=== PATIENT | female | born 1925 | race Caucasian/White ===

== ENCOUNTER 2016-12-14 22:56 | Inpatient (IN) | payer MEDICARE ==
--- NOTE | ~2016-12-14 | CT24 ---
[facility] A Service of [facility] & [facility] RADIOLOGY TEXT RESULTS PATIENT: NICKY STEWART LOCATION: [facility] 328-01 : [birth year] UNIT #: [id number] AGE: [address]: Reyna Ellison MD SEX: F ORDER DR: [id number] [place], [place] [address] [id number] I MR#: [id number] Acc #: [id number] NAME: NICKY STEWART : 1925 SEX: F STUDY DATE/TIME: 12/14/2016 23:24 UNIT: [address] ROOM: [facility] STUDY DESCRIPTION: CT Angio Neck Stroke Attending Physician: Reyna Ellison M.D. Ordering Physician: Alanis Vinson M.D. Primary Care Physician: Jonathan Aguilera Jr., M.D. MEDICAL IMAGING REPORT This report is preliminary unless electronic signature is present EXAM CT angiogram of the neck HISTORY FINDINGS Please see CT angiogram of the head for results. Dictated by... Raghav Mason M.D. THIS IS AN ELECTRONICALLY VERIFIED REPORT Raghav Mason M.D. at 12/15/2016 4:28 PM Noah TD: 12/15/2016 08:07 JOB #: [id number] MEDICAL IMAGING REPORT Page 1 of 1 COPY
--- NOTE | ~2016-12-14 | HP ---
Unit #: [id number] #: [id number] Patient: NICKY STEWART [id number] [address] [place], [place] [address] [id number] MR#: [id number] NAME: NICKY STEWART ROOM: 328 Age: 89 Sex: F Admission Date: 12/15/2016 : 1925 Attending Physician: Celena Singh M.D. Primary Care Physician: Jonathan Aguilera Jr., M.D. HISTORY AND PHYSICAL CHIEF COMPLAINT TIA. HISTORY This very pleasant 89-year-old female with atrial fibrillation, previous CVA, hypertension, and diastolic dysfunction, is admitted for a TIA. The patient was in her usual state of health until 10:00 p.m. when she experienced right hand and arm numbness and weakness. When EMS arrived the patient did have a pronator drift. She was brought to this emergency department at 11:00 p.m. and was seen by Dr. Almaguer via robot. Her symptoms actually have resolved. INR is subtherapeutic due to recent holding of Coumadin for an EGD. Head CT shows no acute disease, only previous CVAs. Therefore, the patient was given 1 mg/kg subcu of Lovenox. Her BUN is 39 with a creatinine of 1.5 and I am asking for IV fluids to be given. She currently is taking Diflucan for Nia esophagitis and notes decreased appetite. Does take Diovan and Lasix. PAST MEDICAL HISTORY 1. Recent admission to [facility] [place] 12/06/2016 through 12/12/2016 for possible aspiration pneumonia. The patient underwent an EGD showing Nia esophagitis, required dilation of her esophagus. 2. Chronic atrial fibrillation, anticoagulated. Previous echo 02/2016 showed an ejection fraction of 63%, tricuspid valve regurgitation, elevated right ventricular systolic pressures, and thickened aortic valve. 3. Hypertension. 4. Allergic rhinitis. 5. 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 6. Appendectomy. 7. Cataract extraction. 8. JIE and BSO. 9. Tonsillectomy. 10. Partial bowel resection for bowel obstruction. 11. Back surgery. ALLERGIES Morphine. DISCHARGE MEDICATIONS Three days ago included Lasix 40 mg b.i.d.; p.r.n. Tylenol; aspirin 81 mg daily; Imdur 60 mg daily; Ativan 0.5 mg t.i.d. p.r.n.; Coumadin 3 mg daily; Diflucan 100 mg daily; Ellen 180 mg daily; Diovan 320 mg daily; Coreg 6.25 mg daily; MiraLAX as needed; potassium 20 mEq daily; Prevacid Unit #: [id number] #: [id number] Patient: NICKY STEWART 50 mg daily; patient normally takes a statin medicine but this is being held, as she currently is receiving Diflucan. FAMILY HISTORY CVA. SOCIAL HISTORY The patient lives with her . Stopped smoking in 1984 and does not drink alcohol. REVIEW OF SYSTEMS Notable for right hand and arm numbness, weakness, dysphagia, Nia esophagitis, atrial fibrillation, hypertension, diastolic dysfunction, left bundle branch block, hypertension, allergic rhinitis, previous CVA, TIA, and above mentioned surgeries. Other systems were reviewed and are otherwise negative. PHYSICAL EXAMINATION GENERAL: Very pleasant, 89-year-old female, currently in no acute distress. VITAL SIGNS: Pulse 96, respirations 14, initial blood pressure 185/80. Current blood pressure is 163/68. O2 saturation 98% on room air. HEENT: Eyes - PERRLA. Extraocular muscles are intact. Status post bilateral cataract extraction. Pharynx is benign. NECK: Supple without adenopathy or thyromegaly. CHEST: Clear. CARDIAC: Normal S1 and S2, very soft systolic murmur. ABDOMEN: Bowel sounds are present. No hepatosplenomegaly, tenderness, or masses. EXTREMITIES: Without clubbing, cyanosis or edema. Pedal pulses are present. NEUROLOGIC: Patient is awake, alert, and oriented. Cranial nerves are intact. She has +5/5 strength throughout. Normal finger to nose. Negative pronator drift. DIAGNOSTIC STUDIES ADMISSION LABS: Hematocrit is 31.5, normal white count, MCV and platelet count. INR is 1.8, PTT is 38.9. Cardiac markers negative. SMA 12 - BUN 39, creatinine 1.5, up from a BUN of 16, creatinine 0.9 12/06/2016. IMAGING STUDIES: Head CT - old right frontal lobe infarcts, small vessel ischemic disease, bilateral small lacunes. 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 CARDIOLOGY STUDIES: EKG - atrial fibrillation rate 84, left bundle branch block, which is old. ASSESSMENT 1. TIA in this patient with atrial fibrillation and with subtherapeutic INR after holding Coumadin for EGD. 2. Acute kidney injury. 3. Recent admission to [facility] [place] for aspiration pneumonia. Patient underwent an EGD revealing Nia esophagitis and required dilation. 4. Essential hypertension. 5. Atrial fibrillation with history of diastolic dysfunction and normal Unit #: [id number] #: [id number] Patient: NICKY STEWART ejection fraction. 6. Prior CVA in 1996 and history of TIA. PLANS 1. One dose of Lovenox was given, continue Coumadin and check an INR in the morning. 2. Neuro checks q.4 hours. 3. IV fluids, hold Lasix and will change Diovan to hydralazine for now pending repeat labs in the morning. 4. Recheck labs in the morning. 5. Neurology has seen via robot and will be seeing in the morning. At this time the patient prefers not to have an MRI scan performed unless needed. 6. Patient is followed by Dr. Courtney's group, if renal function does not improve. Dictated by Celena Singh M.D. HORACE/ana TD: 12/15/2016 05:44 JOB #: [id number] HISTORY AND PHYSICAL Page 1 of 1 X Celena Singh MD HISTORY AND PHYSICAL
--- NOTE | ~2016-12-14 | CO ---
Unit #: [id number] #: [id number] Patient: NICKY STEWART [id number] [facility] [address] [place], [place] [address] [id number] I MR#: [id number] NAME: NICKY STEWART ROOM: 328 Age: 89 Sex: F Admission Date: 12/15/2016 : 1925 Attending Physician: Reyna Ellison M.D. Primary Care Physician: Jonathan Aguilera Jr., M.D. Requesting Physician: Celena Singh M.D. Consultation Date: 12/15/2016 CONSULTATION REPORT REASON FOR CONSULTATION Code Stroke was called. PATIENT IDENTIFICATION This is an 89-year-old, right handed, white female who was evaluated in room 328 at [facility]. SOURCE OF INFORMATION The patient, her daughter and evaluation done by admitting team and also I saw the patient via [employer] robot. PROBLEM LIST 1. History of Nia esophagitis. Dilatation of esophagus was recently done on 12/12. 2. Chronic atrial fibrillation with (1) anticoagulation but this was held because of recent procedure. 3. Hypertension. 4. Allergic rhinitis. 5. Prior stroke and history of transient ischemic attack. 6. Appendectomy. 7. Cataract extraction. 8. JIE. 9. BSO. 10. Tonsillectomy. 11. Partial bowel resection for bowel obstruction. 12. Back surgery. HISTORY OF PRESENT ILLNESS This is a very pleasant 89-year-old female with medical issues as discussed above who was in her usual state of health until 10 p.m. She experienced right hand numbness and weakness. EMS was called. They saw some pronator drift. She was brought to the emergency room around 10:56 p.m. She was evaluated and I did do evaluation via the robot. She was improving and also she told me that recently her Coumadin was held and it was 1.7 that morning and went repeated it was 1.8. Since she was improving and also that she was on anticoagulation, she was not a tPA candidate. Her CT showed old right frontal infarct. Her tPA was okay. Her other labs are in progress. She is doing very well and wants to go home. No falls or injury. No seizures. No migraine. PAST MEDICAL HISTORY As discussed above. Unit #: [id number] #: [id number] Patient: NICKY STEWART PAST SURGICAL HISTORY As discussed above. ALLERGIES Morphine. MEDICATIONS Medications as per recent records are: 1. Lasix 40 mg b.i.d. 2. Tylenol. 3. Aspirin 81 mg. 4. Imdur 60 mg. 5. Ativan 0.5 mg. 6. Coumadin 3 mg daily. 7. Diflucan 100 mg daily. 8. Ellen 180 mg daily. 9. Diovan 320 mg daily. 10. Coreg 6.25 mg. 11. MiraLAX as needed. 12. Potassium 20 mEq. 13. Prevacid 60 mg. 14. She was taking statin but it was held because she was taking Diflucan and she has renal issues. FAMILY HISTORY There are strokes in the family. SOCIAL HISTORY The patient is and lives with her . She stopped smoking in 1984, does not drink alcohol. REVIEW OF SYSTEMS Right handed numbness which is resolved. No sleep issues, fever, chills, rigors, sweats. HEENT: No headaches, no double vision, no earache, runny nose, sore throat. CARDIOVASCULAR: No chest pain, clubbing, cyanosis, orthopnea, palpitations. PULMONARY: No shortness of air, cough or expectoration. GASTROINTESTINAL: No nausea, vomiting, diarrhea or constipation. GENITOURINARY: No genitourinary symptoms. EXTREMITIES: No extremity problems otherwise. BACK: No back problems. PSYCHIATRIC: No psychiatric issues. NEUROLOGICAL: Neurological issues as discussed. She is on anticoagulation. GI issues are improved. PHYSICAL EXAMINATION VITAL SIGNS: Temperature 97.8, pulse 117, respirations 120, blood pressure is 176/70. O2 sats are 93% to 100%, weight of 139 pounds, BMI was 27. NEUROLOGICAL EXAMINATION: The patient is awake, she is alert, she is oriented x3. She can name, she can follow commands. No right/left confusion, no finger agnosia. CRANIAL NERVE EXAMINATION: Demonstrates full vail of vision. Eye movements are conjugate. I did not see any ptosis, I did not see any Unit #: [id number] #: [id number] Patient: NICKY STEWART nystagmus. Extraocular movements are intact. Sensation on the face and scalp is normal. Strength of muscles of facial expression is normal. Hearing seemed to be intact bilaterally. Tongue was midline. Uvula was midline. Palate elevation was normal. Head turning and shoulder shrugs were unremarkable. MOTOR EXAMINATION: Demonstrated normal bulk, tone. Strength was 5-/5 all over. SENSORY EXAMINATION: Intact for soft touch and pain sensation. No extinction was seen. ROMBERG: Not evaluated. GAIT EXAMINATION: Deferred. REFLEXES: I could not get any reflexes. Toes are equivocal. DIAGNOSTIC STUDIES LABORATORY: Labs reviewed including CT and CTA. BUN today is 27, creatinine is 1.0. Estimated GFR is 49.9. Her INR is now 2.0. She got some Lovenox. Her white count is 8.0. H and H of 10.4 and 32.0. Platelet count is 310. IMPRESSION Possible TIA and it could be secondary to her INR being low which is now back to the baseline. She had a procedure done. She is doing fine so I will have PT/OT evaluate her. If they clear her, she can be discharged. I am going to check hemoglobin A1c and lipid profile but she has known diabetes and also she was on lipid lowering medication which was held because of her kidney issue and Diflucan so that needs to be resumed. She wants to go home so she can be cleared. A GEETHA and MRI will not change anything because she needs some anticoagulation and even stroke education and modification of stroke risk factors were discussed. It was very good that they came on time and she improved so she was not an interventional or alteplase candidate. Call me for any other questions, issues or concerns. Discussed with the family last night and today. Dictated by... Anselmo Ortiz/joseph TD: 12/15/2016 12:40 JOB #: [id number] Unit #: [id number] #: [id number] Patient: NICKY STEWART CONSULTATION REPORT Page 1 of 1 X Villa Almaguer MD CONSULTATION REPORT
--- NOTE | ~2016-12-14 | HP ---
Unit #: [id number] #: [id number] Patient: NICKY STEWART [id number] [address] [address] [id number] I MR#: [id number] NAME: NICKY STEWART ROOM: 328 Age: 89 Sex: F Admission Date: 12/15/2016 : 1925 Attending Physician: Celena Singh M.D. Primary Care Physician: Jonathan Aguilera Jr., M.D. HISTORY AND PHYSICAL REVISED/ADDENDED REPORT CHIEF COMPLAINT TIA. HISTORY This very pleasant 89-year-old female with atrial fibrillation, previous CVA, hypertension, and diastolic dysfunction, is admitted for a TIA. The patient was in her usual state of health until 10:00 p.m. when she experienced right hand and arm numbness and weakness. When EMS arrived the patient did have a pronator drift. She was brought to this emergency department at 11:00 p.m. and was seen by Dr. Almaguer via robot. Her symptoms actually have resolved. INR is subtherapeutic due to recent holding of Coumadin for an EGD. Head CT shows no acute disease, only previous CVAs. Therefore, the patient was given 1 mg/kg subcu of Lovenox. Her BUN is 39 with a creatinine of 1.5 and I am asking for IV fluids to be given. She currently is taking Diflucan for Nia esophagitis and notes decreased appetite. Does take Diovan and Lasix. PAST MEDICAL HISTORY 1. Recent admission to [facility] 12/06/2016 through 12/12/2016 for possible aspiration pneumonia. The patient underwent an EGD showing Nia esophagitis, required dilation of her esophagus. 2. Chronic atrial fibrillation, anticoagulated. Previous echo 02/2016 showed an ejection fraction of 63%, tricuspid valve regurgitation, elevated right ventricular systolic pressures, and thickened aortic valve. 3. Hypertension. 4. Allergic rhinitis. 5. 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 6. Appendectomy. 7. Cataract extraction. 8. JIE and BSO. 9. Tonsillectomy. 10. Partial bowel resection for bowel obstruction. 11. Back surgery. ALLERGIES Morphine. DISCHARGE MEDICATIONS Three days ago included Lasix 40 mg b.i.d.; p.r.n. Tylenol; aspirin 81 mg Unit #: [id number] #: [id number] Patient: NICKY STEWART daily; Imdur 60 mg daily; Ativan 0.5 mg t.i.d. p.r.n.; Coumadin 3 mg daily; Diflucan 100 mg daily; Ellen 180 mg daily; Diovan 320 mg daily; Coreg 6.25 mg daily; MiraLAX as needed; potassium 20 mEq daily; Prevacid 50 mg daily; patient normally takes a statin medicine but this is being held, as she currently is receiving Diflucan. FAMILY HISTORY CVA. SOCIAL HISTORY The patient lives with her . Stopped smoking in 1984 and does not drink alcohol. REVIEW OF SYSTEMS Notable for right hand and arm numbness, weakness, dysphagia, Nia esophagitis, atrial fibrillation, hypertension, diastolic dysfunction, left bundle branch block, hypertension, allergic rhinitis, previous CVA, TIA, and above mentioned surgeries. Other systems were reviewed and are otherwise negative. PHYSICAL EXAMINATION GENERAL: Very pleasant, 89-year-old female, currently in no acute distress. VITAL SIGNS: Pulse 96, respirations 14, initial blood pressure 185/80. Current blood pressure is 163/68. O2 saturation 98% on room air. HEENT: Eyes - PERRLA. Extraocular muscles are intact. Status post bilateral cataract extraction. Pharynx is benign. NECK: Supple without adenopathy or thyromegaly. CHEST: Clear. CARDIAC: Normal S1 and S2, very soft systolic murmur. ABDOMEN: Bowel sounds are present. No hepatosplenomegaly, tenderness, or masses. EXTREMITIES: Without clubbing, cyanosis or edema. Pedal pulses are present. NEUROLOGIC: Patient is awake, alert, and oriented. Cranial nerves are intact. She has +5/5 strength throughout. Normal finger to nose. Negative pronator drift. DIAGNOSTIC STUDIES ADMISSION LABS: Hematocrit is 31.5, normal white count, MCV and platelet count. INR is 1.8, PTT is 38.9. Cardiac markers negative. SMA 12 - BUN 39, creatinine 1.5, up from a BUN of 16, creatinine 0.9 12/06/2016. IMAGING STUDIES: Head CT - old right frontal lobe infarcts, small vessel ischemic disease, bilateral small lacunes. 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 CARDIOLOGY STUDIES: EKG - atrial fibrillation rate 84, left bundle branch block, which is old. ASSESSMENT 1. TIA in this patient with atrial fibrillation and with subtherapeutic INR after holding Coumadin for EGD. 2. Acute kidney injury. 3. Recent admission to [facility] for aspiration pneumonia. Patient underwent an EGD revealing Nia esophagitis and required Unit #: [id number] #: [id number] Patient: NICKY STEWART. 4. Essential hypertension. 5. Atrial fibrillation with history of diastolic dysfunction and normal ejection fraction. 6. Prior CVA in 1996 and history of TIA. PLANS 1. One dose of Lovenox was given, continue Coumadin and check an INR in the morning. 2. Neuro checks q.4 hours. 3. IV fluids, hold Lasix and will change Diovan to hydralazine for now pending repeat labs in the morning. 4. Recheck labs in the morning. 5. Neurology has seen via robot and will be seeing in the morning. At this time the patient prefers not to have an MRI scan performed unless needed. 6. Patient is followed by Dr. Courtney's group, if renal function does not improve. ADDENDUM TO JOB [id number] The patient's fingerstick creatinine was 1.1 prior to her CTA and that is why the CTA was felt to be okay to perform. Dictated by Celena Singh M.D. HORACE/joseph TD: 12/15/2016 05:10 JOB #: [id number] Delete Sovera HISTORY AND PHYSICAL Page 1 of 1 X Celena Singh MD HISTORY AND PHYSICAL
--- NOTE | ~2016-12-14 | CT72 ---
[facility] A Service of [facility] RADIOLOGY TEXT RESULTS PATIENT: NICKY STEWART LOCATION: [facility] : [birth year] UNIT #: [id number] AGE: [address]: Reyna Ellison MD SEX: F ORDER DR: [id number] [place], [place] [address] [id number] I MR#: [id number] #: [id number] NAME: NICKY STEWART : 1925 SEX: F STUDY DATE/TIME: 12/14/2016 23:07 UNIT: A PCU ROOM: [facility] STUDY DESCRIPTION: CT Head Wo Contrast Stroke Attending Physician: Reyna Ellison M.D. Ordering Physician: Alanis Vinson M.D. Primary Care Physician: Jonathan Aguilera Jr., M.D. MEDICAL IMAGING REPORT This report is preliminary unless electronic signature is present EXAM CT Head INDICATION Focal neurologic deficit. Right-sided weakness since [address] o[address]CH[address]QUE [address] head without contrast. This CT exam was performed with one or more of the following radiation dose reduction techniques: automatic exposure control, adjustment of mA and/or kV according to patient size, and iterative reconstruction. COMPARISON None available. FINDINGS There is no acute intracranial hemorrhage, mass lesion, or acute infarct. There are some chronic small vessel changes within the periventricular and subcortical white matter. There is old lacunar infarcts within the thalami. There is an area encephalomalacia in the right frontal lobe indicative of a prior infarct. The ventricles and basilar cisterns are normal in size and configuration. No extraaxial collection. IMPRESSION 1. No acute findings. 2. Old infarct in the right frontal lobe. 3. Chronic small vessel changes and remotely lacunar infarcts in the bilateral thalami. Dictated by... Luis Manuel Stephenson M.D. [facility] A Service of [facility] RADIOLOGY TEXT RESULTS PATIENT: NICKY STEWART LOCATION: [facility] : [birth year] UNIT #: [id number] AGE: [address]: Reyna Ellison MD SEX: F ORDER DR: THIS IS AN ELECTRONICALLY VERIFIED REPORT Luis Manuel Stephenson M.D. at 12/19/2016 7:04 AM Darrian TD: 12/14/2016 23:22 JOB #: [id number] MEDICAL IMAGING REPORT Page 1 of 1 COPY
--- NOTE | ~2016-12-14 | CT18 ---
[facility] A Service of [facility] & [facility] RADIOLOGY TEXT RESULTS PATIENT: NICKY STEWART LOCATION: [facility] 328-01 : [birth year] UNIT #: [id number] AGE: [address]: Reyna Ellison MD SEX: F ORDER DR: [id number] [address] [address] [id number] E MR#: [id number] Acc #: [id number] NAME: NICKY STEWART : 1925 SEX: F STUDY DATE/TIME: 12/14/2016 23:24 UNIT: RISHI ROOM: STUDY DESCRIPTION: CT Angio Head Stroke Attending Physician: Alanis Vinson M.D. Ordering Physician: Alanis Vinson M.D. Primary Care Physician: Jonathan Aguilera Jr., M.D. MEDICAL IMAGING REPORT This report is preliminary unless electronic signature is present Dictated by... Luis Manuel Stephenson M.D. THIS IS AN ELECTRONICALLY VERIFIED REPORT Luis Manuel Stephenson M.D. at 12/19/2016 7:03 AM Darrian TD: 12/15/2016 00:36 JOB #: [id number] MEDICAL IMAGING REPORT Page 1 of 1 COPY
--- NOTE | ~2016-12-14 | EKG ---
PATIENT: NICKY STEWART UNIT #: [id number] Ventricular Rate: 84 BPM Atrial Rate: 75 BPM QRS Duration: 146 ms Q-T Interval: 430 ms QTC Calculation(Bezet): 508 ms Calculated R Lexa: -36 degrees Calculated T Lexa: 109 degrees Diagnosis Line: Atrial fibrillation Diagnosis Line: Left axis deviation Diagnosis Line: Left bundle branch block Diagnosis Line: Abnormal ECG Diagnosis Line: No previous ECGs available Diagnosis Line: Confirmed by SALVATORE BARRETT MD ([id number]) on Diagnosis Line: 12/15/2016 1:36:43 PM INTERPRETING MD: NENA HATFIELD
--- NOTE | ~2016-12-14 | DS ---
Unit #: [id number] #: [id number] Patient: NICKY STEWART [id number] [address] [id number] [facility]. [place], [place] [address] [id number] MR#: [id number] NAME: NICKY STEWART ROOM: 328 Age: 89 Sex: F Admission Date: 12/15/2016 : 1925 Discharge Date: 12/15/2016 Attending Physician: Reyna Ellison M.D. Primary Care Physician: Jonathan Aguilera Jr., M.D. DISCHARGE SUMMARY SHORT STAY SUMMARY HOSPITAL COURSE This 89-year-old female was admitted to [facility] with TIA. Details are as per admission H and P. Patient was seen by Dr. Almaguer in consultation who stated that patient's CT head has revealed acute infarct, and CT angiogram was okay, so he has recommended if PT/OT clears, then patient can be discharged home. She is already on Coumadin, and her INR is 2 today. PHYSICAL EXAMINATION GENERAL: Today, patient is comfortable, is anxious to go home. VITAL SIGNS: Vital signs reveal temperature of 98 degrees, pulse 75 per minute, respiratory rate 14 per minute, and blood pressure is 159/69. HEENT: Examination revealed no conjunctival congestion. Sclera is nonicteric. NECK: Neck is supple. Trachea is central. RESPIRATORY: Examination revealed decreased breath sounds bilaterally. There are no wheezes or crackles. HEART: Regular rate and rhythm. S1, S2. ABDOMEN: Abdomen is soft, nontender. Bowel sounds are present in all 4 quadrants. EXTREMITIES: Extremities reveal trace pedal edema. NEUROLOGIC: Strength is 4+ bilaterally. SKIN: Skin is warm and dry. RECOMMENDATIONS ON DISCHARGE 1. Condition is stable. 2. Activities are as tolerated. 3. Patient is advised to continue her home medications, which are as per admission H and P. 4. She is advised to continue her home dose of Coumadin 3 mg and have INR done on Sunday with home health, who are requested to call the patient's primary care physician for Coumadin dosing. 5. Please make note that patient's blood pressure was toward the higher side, but she is also on IV fluids. Family states that the patient's blood pressure is usually well controlled at home. They are advised to contact the patient's primary care physician. 6. I have discussed with the patient's family, and they have been advised to call primary care physician or go to ER if the patient's condition changes. 7. Please make note they are very anxious to go home. Patient will be discharged after PT eval. 8. Please make note that we have not made any change in the patient's medications. Unit #: [id number] #: [id number] Patient: NICKY STEWART Dictated by... Anselmo Box TD: 12/15/2016 13:21 JOB #: [id number] DISCHARGE SUMMARY Page 1 of 1 X Reyna Ellison MD X DISCHARGE SUMMARY
[~2016-12-14 22:56] MED LIST: ASPIRIN PO; ATENOLOL PO; DIOVAN PO; IMDUR PO; LIPITOR PO; PLAVIX PO; PREMARIN PO; PRILOSEC PO; SULAR PO
[2016-12-14] MEDS ORDERED: DIFLUCAN100 MG PO (23:03)
[2016-12-14] MEDS ORDERED: ALLEGRA PO (23:05)
[2016-12-14] MEDS ORDERED: COREG6.25 MG PO (23:05)
[2016-12-14] MEDS ORDERED: ACETAMINOPHEN500 M7 PO (23:05)
[2016-12-14] MEDS ORDERED: ASPIRIN81 M2 PO (23:05)
[2016-12-14] MEDS ORDERED: LASIX PO (23:06)
[2016-12-14] MEDS ORDERED: FLUCONAZOLE100 M1 PO (23:06)
[2016-12-14] MEDS ORDERED: IMDUR-ER60 M2 PO (23:07)
[2016-12-14] MEDS ORDERED: PREVACID15 M1 PO (23:07)
[2016-12-14] MEDS ORDERED: VALSARTAN320 MG PO (23:08)
[2016-12-14] MEDS ORDERED: WARFARIN SODIUM3 M1 PO (23:08)
[2016-12-14] MEDS ORDERED: ATIVAN0.5 MG PO (23:08)
[2016-12-14] MEDS ORDERED: MIRALAX17 G2 PO (23:08)
[2016-12-14 23:27] LABS: BASOPHIL% 0.1 % (0-2.5); EOSINOPHIL# 0.1 X10e3 (0-0.7); EOSINOPHIL% 1.1 % (0.0-7.0); HEMATOCRIT 31.5 % (35.0-45.0); HEMOGLOBIN 10.1 gm/dL (12.0-16.0); LYMPHOCYTE# 1.9 X10e3 (1.0-3.5); LYMPHOCYTE% 20.5 % (17.0-45.0); MEAN CELL VOLUME 88.5 FL (83-96); MEAN CORPUSCULAR HEMOGLOBIN 28.5 PG (28-34); MEAN CORPUSCULAR HGB CONC 32.2 g/dL (30-36); MEAN PLATELET VOLUME 8.4 FL (6.5-11.5); MONOCYTE# 1.1 X10e3 (0-1.0); NEUTROPHIL# 6.1 X10e3 (1.5-7.1); NEUTROPHIL% 66.3 % (40-75); PLATELET COUNT 321 X10e3 (140-420); RED BLOOD COUNT 3.56 X10e (3.90-5.30); RED CELL DISTRIBUTION WIDTH 15.6 % (11.0-15.5); WHITE BLOOD COUNT 9.3 X10e3 (4.0-10.5)
[2016-12-14 23:29] LABS: DIFF IND YES
[2016-12-14 23:36] LABS: INR 1.8; PARTIAL THROMBOPLASTIN TIME 38.9 SECONDS (23.5-31.3); PROTHROMBIN TIME (PATIENT) 19.3 SECONDS (9.6-11.5)
[2016-12-14 23:48] LABS: ALBUMIN SERUM 3.5 g/dL (3.5-5.0); BILIRUBIN, DIRECT 0.1 mg/dL (0.0-0.2); BILIRUBIN,INDIRECT 0.4 mg/dL (0.0-0.9); BILIRUBIN,TOTAL 0.5 mg/dL (0.2-2.0); CALCIUM SERUM 9.1 mg/dL (8.4-10.2); CREATININE SERUM 1.5 mg/dL (0.6-1.4); GLOM FILT RATE Estimated 30.6 mL/min (>60); POTASSIUM 3.9 mmol/L (3.5-5.1); PROTEIN TOTAL SERUM 7.4 g/dL (6.0-8.3)
[2016-12-14 23:50] LABS: ANISOCYTOSIS SL; PLATELET ESTIMATE NORMAL (NORMAL); VACUOLIZATION P
[2016-12-15 00:01] LABS: POC - CREATININE 1.17 mg/dL (0.44-1.03)
[2016-12-15 00:02] LABS: POC - CKMB 2.5 ng/mL (0.0-7.9); POC - TROPONIN <0.05 ng/mL (<=0.05)
[2016-12-15 01:47] LABS: POC - CKMB 2.9 ng/mL (0.0-7.9); POC - TROPONIN <0.05 ng/mL (<=0.05)
[2016-12-15 04:43] LABS: URINE SOURCE CLEAN CATCH
[2016-12-15 04:47] LABS: URINE APPEARANCE CLEAR; URINE BILIRUBIN NEG (NEG); URINE BLOOD TRACE (NEG); URINE COLOR YELLOW; URINE GLUCOSE NEG (NEG); URINE KETONE NEG (NEG); URINE LEUKOCYTE ESTERASE NEG (NEG); URINE NITRATE NEG (NEG); URINE PH 6.5 (5-8); URINE PROTEIN TRACE (NEG); URINE SPECIFIC GRAVITY 1.019 (1.003-1.035); URINE UROBILINOGEN 0.2 MG/DL (NEG)
[2016-12-15 04:49] LABS: CULTURE INDICATED? NO; URINE BACTERIA AUWI NEG (NEGATIVE); URINE SQUAMOUS EPITHELIAL CELL OCC /[HPF]; UWBCS1 AUWI 0-2 (0-5)
[2016-12-15 07:32] LABS: HEMOGLOBIN 10.4 gm/dL (12.0-16.0); MEAN CELL VOLUME 88.1 FL (83-96); MEAN CORPUSCULAR HEMOGLOBIN 28.6 PG (28-34); MEAN CORPUSCULAR HGB CONC 32.5 g/dL (30-36); MEAN PLATELET VOLUME 8.4 FL (6.5-11.5); RED BLOOD COUNT 3.64 X10e (3.90-5.30); RED CELL DISTRIBUTION WIDTH 15.3 % (11.0-15.5)
[2016-12-15 07:46] LABS: PROTHROMBIN TIME (PATIENT) 21.4 SECONDS (9.6-11.5)
[2016-12-15 08:01] LABS: CALCIUM SERUM 9.2 mg/dL (8.4-10.2); GLOM FILT RATE Estimated 49.9 mL/min (>60); POTASSIUM 3.4 mmol/L (3.5-5.1)
[2016-12-15 08:19] LABS: %MB 3.2 % (0.0-4.0); MB 2.3 ng/ml
[2016-12-15 14:37] LABS: CHOLESTEROL 126 mg/dL (0-200); HDL CHOLESTEROL 32 mg/dL (35-95); LDL CHOLESTEROL 76 mg/dL (-130); LDL/HDL RATIO 2 RATIO (0-4); TRIGLYCERIDES 91 mg/dL (10-160)
[2016-12-15] MEDS ORDERED: HYDRALAZINE HCL25 MG PO (15:37)
== END 2016-12-15 16:49 | disposition home health service (06) | DRG 69 ==
LOC: CED 22:56 → CEDOF 12-15 00:59 → C3A PCU 12-15 00:59
PROVIDERS: Internal Medicine; Psychiatry & Neurology Neurology; Student in an Organized Health Care Education/Training Program
PROC: B32RYZZ Computerized Tomography (CT Scan) of Intracranial Arteries using Other Contrast (ICD-10-PCS; principal; 2016-12-15)
PROC: B328YZZ Computerized Tomography (CT Scan) of Bilateral Internal Carotid Arteries using Other Contrast (ICD-10-PCS; 2016-12-15)
PROC: B24BYZZ Ultrasonography of Heart with Aorta using Other Contrast (ICD-10-PCS; 2016-12-15)
DX: G45.9 Transient cerebral ischemic attack, unspecified (principal); N17.9 Acute kidney failure, unspecified; I48.91 Unspecified atrial fibrillation; B37.81 Candidal esophagitis; I10 Essential (primary) hypertension; Z86.73 Personal history of transient ischemic attack (TIA), and cerebral infarction without residual deficits; Z79.01 Long term (current) use of anticoagulants; Z98.49 Cataract extraction status, unspecified eye; Z90.710 Acquired absence of both cervix and uterus; J30.9 Allergic rhinitis, unspecified; Z79.82 Long term (current) use of aspirin
CPT/HCPCS: 36415; 70450; 70496; 70498; 80048; 80061; 80076; 81003; 82550; 82553; 82565; 82947; 83036; 84484; 85025; 85027; 85610; 85730; 86140; 87086; 93005; 93306; 96372; 97116; 97161; 99285; G8978-GP; G8979-GP; G8980-GP; J1650; Q9967